=== PATIENT | male | born 1985 | race Caucasian/White ===

== ENCOUNTER 2016-08-06 19:30 | Emergency (ER) | payer SELFPAY ==
[~2016-08-06] VITALS: Ht 165.1 cm; Wt 66.0 kg
[2016-08-06 19:33] VITALS: BP 137/77; PULSE 93; RESP 16; TEMP 99.3; O2SAT 99
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
--- NOTE | 2016-08-06 20:35 | RADRPT ---
EXAM DATE/TIME: 08/06/2016 20:07 [facility] COMPARISON: No previous studies available for comparison. INDICATIONS : Lower back and right leg pain. Patient states the pain radiates down through his right hip. No known injury. MEDICAL HISTORY : None. SURGICAL HISTORY : None. ENCOUNTER: Initial ACUITY: 2 weeks PAIN SCORE: 9/10 LOCATION: Right lumbar. FINDINGS: Three views of the lumbar spine demonstrate five [id number] lumbar vertebral bodies. No fracture or compression deformity is present. There is no anterolisthesis or retrolisthesis. No significant a rthropathy is present. There are small endplate osteophytes at L4 and L5. The visualized paraspinous soft tissues and pelvic bones demonstrate no acute abnormality. CONCLUSION: No significant lumbar spine abnormality is identified. Geronimo Vo MD on August 06, 2016 at 20:32 Board Certified Radiologist. This report was verified electronically.
--- NOTE | 2016-08-06 20:35 | RADRPT ---
EXAM DATE/TIME: 08/06/2016 20:07 [facility] COMPARISON: No previous studies available for comparison. INDICATIONS : Lower back and right leg pain. Patient states the pain radiates down through his right hip. No known injury. MEDICAL HISTORY : None. SURGICAL HISTORY : None. ENCOUNTER: Initial ACUITY: 2 weeks PAIN SCORE: 9/10 LOCATION: Right lumbar. FINDINGS: Frontal and oblique views of the SI joints were performed. There is a symmetric appearance to the SI joints, without evidence of sclerosis or bridging osteophytes. CONCLUSION: No acute finding is identified. Geronimo Vo MD on August 06, 2016 at 20:31 Board Certified Radiologist. This report was verified electronically.
[2016-08-06] MEDS ORDERED: PERC5TAB12 PO (20:40)
[2016-08-06] MEDS ORDERED: ETOD400T PO (20:45)
== END 2016-08-06 21:07 | disposition home or self-care (01) ==
LOC: NEPK 19:30
DX: M54.30 Sciatica, unspecified side (principal); M79.605 Pain in left leg; M79.604 Pain in right leg; Z79.899 Other long term (current) drug therapy
CPT/HCPCS: 72100; 72202; 99284